=== PATIENT | female | born 1960 | race Caucasian/White ===

== ENCOUNTER → 2016-12-18 | Outpatient (CLI) | payer OTHER | LOC: FIMAGING 16:07 | PROVIDERS: ATTEND Obstetrics & Gynecology Gynecology | DX: Z12.31 Encounter for screening mammogram for malignant neoplasm of breast (principal) | CPT/HCPCS: G0202 ==

== ENCOUNTER 2017-06-02 21:32 | Emergency (ER) | payer OTHER ==
--- NOTE | 2017-06-02 23:53 | EDPHY ---
H & P HPI/ROS: Chief complaint: Right hand injury History of present illness: 57-year-old female presents to the emergency department for a right hand injury. She reports just prior to arrival she tripped and fell landing onto her hand and cut the palm. Minimal pain. Minimal bleeding. She is still moving the hand and the wrist well. She is concerned she may need stitches. No report of associated abnormal coolness or paresthesias in the hand. No other injuries reported. Her tetanus is up-to- date. Smoking Status: Never smoked Physical Exam: General: Alert, nontoxic Skin: Abrasion to the mid aspect of the right palm, 1 cm laceration at the base of the 5th finger. Exploration does not reveal foreign bodies or deep structure injury. Musculoskeletal: The digits and the hand and wrist are nontender. Patient is moving all joints in all digits in all mathew well. She is moving the wrist well in all mathew. Vascular: Capillary refill brisk in all digits of the right hand. Neurologic: Sensation intact throughout the right hand. Constitutional: Initial Vital Signs Temperature (C) 36.9 C 06/02/17 21:38 Heart Rate 80 06/02/17 21:38 Respiratory Rate 16 06/02/17 21:38 Blood Pressure 113/73 06/02/17 21:38 O2 Sat (%) 96 06/02/17 21:38 O2 Delivery Mode Room Air Allergies/Adverse Reactions: thimerosal [Thimerosal] Allergy (Mild, Verified 02/15/09 16:20) Rash Sulfa (Sulfonamide Antibiotics) Allergy (Verified 06/02/17 21:42) Home Medications: Medication Instructions Recorded NK [No Known Home Meds] 06/02/17 MDM/Departure - MDM Procedures: Procedure: Laceration repair. Verbal consent was obtained from the patient. The 1 cm laceration on the right hand was anesthetized in the usual fashion. The wound was irrigated, draped and explored to its base with a gloved finger. There were no deep structures involved. No tendon injury was identified. The wound was repaired with 5 0 Prolene. The wound repair was simple. The procedure was performed by myself. Medications Given: Patient seen under the supervision of my secondary supervising physician Dr. Nelida Sequeira. Patient presents to the emergency department for right hand injury. The hand is neurovascularly intact. Minimal discomfort. I have offered an x-ray but she has declined. Wounds are cleaned, debrided, repaired and dressed. She is discharged home. Home care is discussed. Return precautions are given. Patient voiced understanding and agreement with plan. ED Course/Re-evaluation: Included but not limited to laceration, deep structure injury, foreign body contamination - Depart Disposition: Home, Routine, Self-Care Clinical Impression: Hand laceration Qualifiers: Encounter type: initial encounter Foreign body presence: without foreign body Laterality: right Qualified Code(s): S61.411A - Laceration without foreign body of right hand, initial encounter Condition: Good Instructions: Care For Your Stitches (ED), Laceration (ED), Acute Wounds (ED) Additional Instructions: Follow-up with your primary care doctor or a hand doctor for recheck Stitches to be removed in 7 days If symptoms worsen or new symptoms develop return to the emergency room for recheck Referrals: Kalee Garrison MD [Primary Care Provider] - As per Instructions Charo Marcum MD [Medical Doctor] - As per Instructions
[2017-06-03 00:32] VITALS: BP 108/79; PULSE 64; RESP 18; TEMP 98.6; O2SAT 95
== END 2017-06-03 00:30 | disposition home or self-care (01) ==
PROC: 0HQFXZZ Repair Right Hand Skin, External Approach (ICD-10-PCS; principal; 2017-06-02)
DX: S61.411A Laceration without foreign body of right hand, initial encounter (principal); W01.0XXA Fall on same level from slipping, tripping and stumbling without subsequent striking against object, initial encounter

== ENCOUNTER → 2017-06-27 | Outpatient (CLI) | payer OTHER | LOC: BMCIMAGING 14:22 | PROVIDERS: ATTEND Internal Medicine | DX: M85.89 Other specified disorders of bone density and structure, multiple sites (principal) ==